=== PATIENT | male | born 1965 | race Caucasian/White ===

== ENCOUNTER 2016-09-26 19:41 | Observation (INO) | payer MEDICARE ==
[2016-09-26 19:56] VITALS: BMI 28.3
[2016-09-26] MEDS ORDERED: PANTOPRAZOLE SODIUM 40 MG in SODIUM CHLORIDE 100 ML IVPB ONE (20:09)
[2016-09-26] MEDS ORDERED: SODIUM CHLORIDE 1,000 ML IV STA (20:09)
--- NOTE | 2016-09-26 20:09 | PDOC ---
History of Present Illness <Rebecca Clement - Last Filed: 09/27/16 00:13> <Emerald Rodriguez - Last Filed: 09/27/16 00:23> - General Chief Complaint: Lightheaded Stated Complaint: CHEST PAIN Time Seen by Provider: 09/26/16 19:58 - History of Present Illness Initial Comments: 09/27/16 00:06 Patient is a 51 year old male with no significant medical hx who is presenting to the ED with an episode of chest pain that occurred at 3:30 this afternoon. 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 His chest pain was substernal, non-radiating, and rated 6/10 in severity. The patient also endorses dizziness and some arm tingling with his pain. The patient denies any nausea, vomiting, diaphoresis or shortness of breath. He reports that his pain has resolved at this time. The patient also notes that he drank 10 beers yesterday. 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 He has never received a cardiac work up. (Rebecca Clement) Past History <Rebecca Clement - Last Filed: 09/27/16 00:13> - Past Medical History Other medical history: denies - Immunization History Immunization Up to Date: Yes - Psycho/Social/Smoking Cessation Hx Suicidal Ideation: No Smoking History: Never smoked Information on smoking cessation initiated: No Hx Alcohol Use: Yes Drug/Substance Use Hx: No <Emerald Rodriguez - Last Filed: 09/27/16 00:23> - Past Medical History Allergies/Adverse Reactions: Allergies Allergy/AdvReac Type Severity Reaction Status Date / Time No Known Allergies Allergy Verified 09/26/16 22:14 Home Medications: Ambulatory Orders NK [No Known Home Medication] 09/26/16 Review of Systems <Rebecca Clement - Last Filed: 09/27/16 00:13> <Emerald Rodriguez - Last Filed: 09/27/16 00:23> - Review of Systems Comments:: 09/27/16 00:10 CONSTITUTIONAL: Absent: fever, chills, diaphoresis, generalized weakness, malaise, loss of appetite HEENT: Absent: rhinorrhea, nasal congestion, throat pain, throat swelling, difficulty swallowing, mouth swelling, ear pain, eye pain, visual changes CARDIOVASCULAR: Present: chest pain Absent: syncope, palpitations, irregular heart rate, lightheadedness, peripheral edema RESPIRATORY: Absent: cough, shortness of breath, dyspnea with exertion, orthopnea, wheezing, stridor, hemoptysis GASTROINTESTINAL: Absent: abdominal pain, abdominal distension, nausea, vomiting, diarrhea, constipation, melena, hematochezia GENITOURINARY: Absent: dysuria, frequency, urgency, hesitancy, hematuria, flank pain, genital pain MUSCULOSKELETAL: Absent: myalgia, arthralgia, joint swelling SKIN: Absent: rash, itching, pallor HEMATOLOGIC/IMMUNOLOGIC: Absent: easy bleeding, easy bruising, lymphadenopathy, frequent infections ENDOCRINE: Absent: unexplained weight gain, unexplained weight loss, heat intolerance, cold intolerance NEUROLOGIC: Present: dizziness, arm tingling Absent: headache, focal weakness, unsteady gait, seizure, mental status changes , bladder or bowel incontinence. PSYCHIATRIC: Absent: anxiety, depression, suicidal or homicidal ideation, hallucinations (Rebecca Clement) *Physical Exam <Rebecca Clement - Last Filed: 09/27/16 00:13> <Emerald Rodriguez - Last Filed: 09/27/16 00:23> - Vital Signs Last Vital Signs Temp Pulse Resp BP Pulse Ox 98.1 F 90 20 144/90 98 09/26/16 19:42 09/26/16 19:42 09/26/16 19:42 09/26/16 19:42 09/26/16 20:25 - Physical Exam Comments: 09/27/16 00:11 GENERAL: Well developed, well nourished. Awake and alert. No acute distress. HEENT: Normocephalic, atraumatic. PERRLA, EOMI. No conjunctival pallor. Sclera are non- icteric. Moist mucous membranes. Oropharynx is clear. NECK: Supple. Full ROM. No JVD. Carotid pulses 2+ and symmetric, without bruits. No thyromegaly. No lymphadenopathy. CARDIOVASCULAR: Regular rate and rhythm. No murmurs, rubs, or gallops. Distal pulses are 2+ and symmetric. PULMONARY: No evidence of respiratory distress. Lungs clear to auscultation bilaterally. No wheezing, rales or rhonchi. ABDOMINAL: Soft. Non-tender. Non-distended. No rebound or guarding. No organomegaly. Normoactive bowel sounds. MUSCULOSKELETAL: Normal range of motion at all joints. No bony deformities or tenderness. No CVA tenderness. EXTREMITIES: No cyanosis. No clubbing. No edema. No calf tenderness. SKIN: Warm and dry. Normal capillary refill. No rashes. No jaundice. NEUROLOGICAL: Alert, awake, appropriate. No gross neurological deficits. Cranial nerves 2-12 intact. Normal speech. Gait is normal without ataxia. PSYCHIATRIC: Cooperative. Good eye contact. Appropriate mood and affect. (Rebecca Clement) Heart Score/ECG Review <Rebecca Clement - Last Filed: 09/27/16 00:13> <Emerald Rodriguez - Last Filed: 09/27/16 00:23> #1 09/27/16 00:13 Normal sinus rhythm at 97 bpm Possible left atrial enlargement Borderline ECG (Rebecca Clement) ED Treatment Course - LABORATORY CBC & Chemistry Diagram: 09/26/16 20:05 09/26/16 20:05 <Rebecca Clement - Last Filed: 09/27/16 00:13> - LABORATORY CBC & Chemistry Diagram: 09/26/16 20:05 09/26/16 20:05 <Emerald Rodriguez - Last Filed: 09/27/16 00:23> - ADDITIONAL ORDERS Additional order review: Laboratory Results 09/26/16 09/26/16 09/26/16 20:12 20:05 20:05 INR Sodium 137 Potassium 4.1 Chloride 99 Carbon Dioxide 27 Anion Gap 11 BUN 14 Creatinine 0.7 Creat Clearance w eGFR > 60 Random Glucose 112 H Calcium 9.1 Total Bilirubin 0.5 AST 19 ALT 42 Alkaline Phosphatase 100 Creatine Kinase 261 Creatine Kinase Index 0.2 CK-MB (CK-2) 5.723 H CK-MB (CK-2) Rel Index Cancelled Troponin I < 0.02 Total Protein 8.1 Albumin 4.2 Alcohol, Quantitative < 5.0 09/26/16 20:05 INR 1.03 Sodium Potassium Chloride Carbon Dioxide Anion Gap BUN Creatinine Creat Clearance w eGFR Random Glucose Calcium Total Bilirubin AST ALT Alkaline Phosphatase Creatine Kinase Creatine Kinase Index CK-MB (CK-2) CK-MB (CK-2) Rel Index Troponin I Total Protein Albumin Alcohol, Quantitative 09/26/16 20:05 RBC 5.16 MCV 84.8 MCHC 32.6 RDW 13.8 MPV 8.4 Neutrophils % 81.8 Lymphocytes % 11.8 Monocytes % 5.7 Eosinophils % 0.3 Basophils % 0.4 - RADIOLOGY Radiology Studies Ordered: Category Date Time Status CHEST X-RAY PORTABLE* [RAD] Stat Radiology 09/26/16 20:09 Completed Radiograph Interpretation: 09/27/16 00:12 Chest X-Ray Impression: Unremarkable examination. Reported By: Aiyana Boyd MD (Rebecca Clement) - Medications Given in the ED: ED Medications Discontinued Medications Generic Name Dose Route Start Last Admin Trade Name Freq PRN Reason Stop Dose Admin Aspirin 162 mg 09/26/16 23:36 09/26/16 23:59 Asa - PO 09/26/16 23:37 162 mg ONCE ONE Administration Sodium Chloride 1,000 mls @ 1,000 mls/hr 09/26/16 20:09 09/26/16 20:20 Normal Saline - IV 09/26/16 21:08 1,000 mls/hr ASDIR STA Administration Pantoprazole Sodium 40 mg/ 100 mls @ 200 mls/hr 09/26/16 20:09 09/26/16 20:24 Sodium Chloride IVPB 09/26/16 20:38 200 mls/hr ONCE ONE Administration Medical Decision Making <Rebecca Clement - Last Filed: 09/27/16 00:13> <Emerald Rodriguez - Last Filed: 09/27/16 00:23> - Medical Decision Making 09/27/16 00:21 51-year-old male chest pain today that was nonradiating. He had dizziness and has some tingling in his arm at that time. He had no vomiting or diaphoresis. He said that his pain lasted for about 2 hours and it was 6 out of 10 substernal He's never had chest pain before. He does not go to a physician. He has past medical history of knee surgery in the remote past. Past medical history denies EKG 72 bpm with PVCs Chest x-ray is no acute pulmonary disease First cardiac enzyme is negative I spoke with Dr. Florence and pt will be admitted to telemetry observation (Emerald Rodriguez) *DC/Admit/Observation/Transfer <Rebecca Clement - Last Filed: 09/27/16 00:13> - Discharge Dispostion Admit: Yes <Emerald Rodriguez - Last Filed: 09/27/16 00:23> Diagnosis at time of Disposition: Chest pain Qualifiers: Chest pain type: unspecified Qualified Code(s): R07.9 - Chest pain, unspecified - Discharge Dispostion Decision to Admit order Date/Time: Decision to Admit Order Category Date Time Status Decision to Admit to Hospital Routine Admission 09/27/16 00:21 Ordered - Attestations Scribe Attestion: 09/27/16 00:14 Documentation prepared by Rebecca Clement, acting as medical orderly for Emerald Rodriguez MD. (Rebecca Clement)
[2016-09-26 20:12] LABS: BASOPHIL 0.4 % (0-2.0); EOSINOPHIL 0.3 % (0-4.5); MCH 27.6 pg (25.7-33.7); MCHC 32.6 g/dl (32.0-35.9); MEAN CELL VOLUME 84.8 fl (80-96); MEAN PLT VOLUME 8.4 fl (7.5-11.1); NEUTROPHILS 81.8 % (42.8-82.8); PLATELET COUNT 244 K/MM3 (134-434); RDW 13.8 % (11.9-15.9); WHITE BLOOD COUNT 12.5 K/mm3 (4.0-10.0)
[2016-09-26 20:20] LABS: INR 1.03 (0.82-1.09); PROTHROMBIN TIME (PATIENT) 11.3 SEC (9.98-11.88)
[2016-09-26] MEDS ORDERED: PANTOPRAZOLE SODIUM 40 MG VIAL ONE (20:21)
[2016-09-26 20:49] LABS: ALBUMIN 4.2 g/dl (3.4-5.0); ANION GAP 11 (8-16); BILIRUBIN,TOTAL 0.5 mg/dL (0.2-1.0); CALCIUM 9.1 mg/dL (8.5-10.1); CO2 27 mmol/L (21-32); COCKROFT - GAULT 126.71; CREATININE 0.7 mg/dL (0.7-1.3); GLUCOSE,RANDOM 112 mg/dL (74-106); SGOT/AST 19 U/L (15-37); SGPT/ALT 42 U/L (12-78); TOT PROT 8.1 g/dl (6.4-8.2)
[2016-09-26 20:52] LABS: ALK PHOS 100 U/L (45-117); TROPONIN I < 0.02 ng/ml (0.00-0.05)
[2016-09-26] MEDS ORDERED: PANTOPRAZOLE SODIUM 100 ML IVPB ONE (21:49)
[2016-09-26] MEDS ORDERED: ASPIRIN 81 MG CHEWABLE TABLETS PO ONE (23:36)
[2016-09-26] MEDS ORDERED: ASPIRIN 81 MG CHEWABLE TABLETS ONE (23:51)
[2016-09-27] MEDS ORDERED: ACETAMINOPHEN 325 MG TABLET (FP) PO PRN (01:56)
--- NOTE | 2016-09-27 02:03 | HP ---
CHIEF COMPLAINT: " i had chest pressure" PCP: none HISTORY OF PRESENT ILLNESS: This is a 51 yo M with no PMH and no physician f/u, who presented due to a sudden episode of chest pressure that occurred at 330 pm during physical activity and lasted for 2 hours until he received Asa and PPI in ED. Pressure was left sided, aggravated by moving his arms, associated with b/l finger tingling, diaphoresis, palpitations and dizziness. There was no sob and patient denies ever having chest pain or discomfort before. He denies exercise intolerance, orthopnea or weight gain. He drank 10 beers the day before but denies drinking every day, stating he only drinks once every 2 weeks. He has no family history of heart disease. 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 Smoking: denies Alcohol: occasional Drugs: denies Family History: no history of heart problems Allergies No Known Allergies Allergy (Verified 09/26/16 22:14) HOME MEDICATIONS: Home Medications Medication Instructions Recorded NK [No Known Home Medication] 09/26/16 REVIEW OF SYSTEMS CONSTITUTIONAL: Absent: fever, chills, loss of appetite, weight change HEENT: Absent: rhinorrhea, nasal congestion, throat pain, throat swelling CARDIOVASCULAR: Absent: syncope, irregular heart rate, peripheral edema RESPIRATORY: Absent: cough, shortness of breath, dyspnea with exertion, orthopnea, wheezing, stridor, hemoptysis GASTROINTESTINAL: Absent: abdominal pain, abdominal distension, nausea, vomiting, diarrhea, constipation GENITOURINARY: Absent: dysuria, frequency, urgency MUSCULOSKELETAL: Absent: myalgia, arthralgia SKIN: Absent: rash, itching, pallor HEMATOLOGIC/IMMUNOLOGIC: Absent: easy bleeding, easy bruising ENDOCRINE: Absent: unexplained weight gain, unexplained weight loss, heat intolerance, cold intolerance NEUROLOGIC: Absent: headache, focal weakness or paresthesias, dizziness, unsteady gait, seizure PSYCHIATRIC: Absent: anxiety, depression PHYSICAL EXAMINATION GENERAL: Awake, alert, and fully oriented, in no acute distress. HEAD: Normal with no signs of trauma. EYES: Pupils equal, round and reactive to light, extraocular movements intact, sclera anicteric, conjunctiva clear. No lid lag. EARS, NOSE, THROAT: Moist mucous membranes. NECK: supple without JVD, or masses. LUNGS: Breath sounds equal, clear to auscultation bilaterally. No wheezes, and no crackles. HEART: Regular rate and rhythm, normal S1 and S2 without murmur, rub or gallop. ABDOMEN: Soft, nontender, not distended, normoactive bowel sounds, no mass, + hepatomegaly MUSCULOSKELETAL: No CVA tenderness. UPPER EXTREMITIES: 2+ pulses, warm, well-perfused. No cyanosis. No clubbing. No peripheral edema. LOWER EXTREMITIES: 2+ pulses, warm, well-perfused. No calf tenderness. No peripheral edema. NEUROLOGICAL: Cranial nerves II-XII grossly intact. Normal speech. PSYCHIATRIC: Cooperative. Good eye contact. Appropriate mood and affect. SKIN: Warm, dry Laboratory Tests 09/26/16 09/26/16 09/27/16 20:05 20:05 03:04 WBC 12.5 H Hgb 14.3 Hct 43.8 Plt Count 244 Neutrophils % 81.8 Sodium 137 Potassium 4.1 Chloride 99 Carbon Dioxide 27 Anion Gap 11 BUN 14 Creatinine 0.7 Total Bilirubin 0.5 AST 19 ALT 42 CK-MB (CK-2) 5.723 H Troponin I < 0.02 < 0.02 ASSESSMENT/PLAN: This is a 51 yo M with no PMH and no physician f/u, who presented due to a sudden episode of chest pressure that occurred at 330 pm during physical activity and lasted for 2 hours until he received Asa and PPI in ED. atypical chest pain -EKG no sign of ACS -trop negative x2 -CXR unremarkable -may be musculoskeletal or vasovagal vs gi -tele monitoring -asa 81 daily -TTE -tfts, a1c, lipid panel -ppi for possible reflux in setting of binge drinking -outpatient pcp and cardiac f/u recommended FEN No ivf lytes stable na restricted diet SCD Dispo: obs in tele Problem List - Problem (1) Chest pain Code(s): R07.9 - CHEST PAIN, UNSPECIFIED Qualifiers: Chest pain type: unspecified Qualified Code(s): R07.9 - Chest pain, unspecified (2) Atypical chest pain Code(s): R07.89 - OTHER CHEST PAIN Visit type - Emergency Visit Emergency Visit: Yes ED Registration Date: 05/09/17 Care time: The patient presented to the Emergency Department on the above date and was hospitalized for further evaluation of their emergent condition. - New Patient This patient is new to me today: Yes Date on this admission: 09/27/16 - Critical Care Critical Care patient: No
--- NOTE | 2016-09-27 05:44 | PN ---
Teaching Attending Note Name of Resident: Elena Morales ATTENDING PHYSICIAN STATEMENT I saw and evaluated the patient. I reviewed the resident's note and discussed the case with the resident. I agree with the resident's findings and plan as documented. SUBJECTIVE: 51 year old presents to the ED c/o mid sternal chest pain , 6/10, occurred during exertion , non radiating associated with dizziness. Resolved upon arrival . Denies previous episodes. Denies history of MS or CAD PMH: None PSH: Denies ALL : NKDA Meds : NONE Social : Denies smoking Admits to alcohol use , 5 days a week Last drink yesterday x 10 OBJECTIVE: Vital Signs Temperature 98.1 F 09/26/16 19:42 Pulse Rate 90 09/26/16 19:42 Respiratory Rate 20 09/26/16 19:42 Blood Pressure 144/90 09/26/16 19:42 O2 Sat by Pulse Oximetry (%) 98 09/26/16 20:25 GENERAL: Well developed, well nourished. Awake and alert. No acute distress. HEENT: Normocephalic, atraumatic. PERRLA, EOMI. No conjunctival pallor. Sclera are non- icteric. Moist mucous membranes. Oropharynx is clear. NECK: Supple. Full ROM. No JVD. Carotid pulses 2+ and symmetric, without bruits. No thyromegaly. No lymphadenopathy. CARDIOVASCULAR: Regular rate and rhythm. No murmurs, rubs, or gallops. Distal pulses are 2+ and symmetric. PULMONARY: No evidence of respiratory distress. Lungs clear to auscultation bilaterally. No wheezing, rales or rhonchi. ABDOMINAL: Soft. Non-tender. Non-distended. No rebound or guarding. No organomegaly. Normoactive bowel sounds. MUSCULOSKELETAL: Normal range of motion at all joints. No bony deformities or tenderness. No CVA tenderness. EXTREMITIES: No cyanosis. No clubbing. No edema. No calf tenderness. Laboratory 09/26/16 09/26/16 09/26/16 20:05 20:05 20:05 WBC 12.5 K/mm3 H K/mm3 (4.0-10.0) RBC 5.16 M/mm3 M/mm3 (4.00-5.60) Hgb 14.3 GM/dL GM/dL (11.7-16.9) Hct 43.8 % % (35.4-49) MCV 84.8 fl fl (80-96) MCHC 32.6 g/dl g/dl (32.0-35.9) RDW 13.8 % % (11.9-15.9) Plt Count 244 K/MM3 K/MM3 (134-434) MPV 8.4 fl fl (7.5-11.1) Neutrophils % 81.8 % % (42.8-82.8) Lymphocytes % 11.8 % % (8-40) Monocytes % 5.7 % % (3.8-10.2) Eosinophils % 0.3 % % (0-4.5) Basophils % 0.4 % % (0-2.0) INR 1.03 (0.82-1.09) Sodium 137 mmol/L mmol/L (136-145) Potassium 4.1 mmol/L mmol/L (3.5-5.1) Chloride 99 mmol/L mmol/L (98-107) Carbon Dioxide 27 mmol/L mmol/L (21-32) Anion Gap 11 (8-16) BUN 14 mg/dL mg/dL (7-18) Creatinine 0.7 mg/dL mg/dL (0.7-1.3) Creat Clearance w eGFR > 60 (>60) Random Glucose 112 mg/dL H mg/dL (74-106) Calcium 9.1 mg/dL mg/dL (8.5-10.1) Total Bilirubin 0.5 mg/dL mg/dL (0.2-1.0) AST 19 U/L U/L (15-37) ALT 42 U/L U/L (12-78) Alkaline Phosphatase 100 U/L U/L (45-117) Creatine Kinase 261 IU/L IU/L (39-308) Creatine Kinase Index 0.2 % % (0.0-5.0) CK-MB (CK-2) 5.723 ng/ml H ng/ml (0.5-3.6) CK-MB (CK-2) Rel Index Troponin I < 0.02 ng/ml ng/ml (0.00-0.05) Total Protein 8.1 g/dl g/dl (6.4-8.2) Albumin 4.2 g/dl g/dl (3.4-5.0) Alcohol, Quantitative 09/26/16 09/26/16 09/27/16 20:05 20:12 03:04 WBC RBC Hgb Hct MCV MCHC RDW Plt Count MPV Neutrophils % Lymphocytes % Monocytes % Eosinophils % Basophils % INR Sodium Potassium Chloride Carbon Dioxide Anion Gap BUN Creatinine Creat Clearance w eGFR Random Glucose Calcium Total Bilirubin AST ALT Alkaline Phosphatase Creatine Kinase Creatine Kinase Index CK-MB (CK-2) CK-MB (CK-2) Rel Index Cancelled Troponin I < 0.02 ng/ml ng/ml (0.00-0.05) Total Protein Albumin Alcohol, Quantitative < 5.0 mg/dl mg/dl (0-5) ASSESSMENT AND PLAN:
[2016-09-27 06:49] LABS: MCH 28.3 pg (25.7-33.7); MCHC 33.2 g/dl (32.0-35.9); MEAN CELL VOLUME 85.1 fl (80-96); MEAN PLT VOLUME 8.3 fl (7.5-11.1); PLATELET COUNT 210 K/MM3 (134-434); RDW 13.9 % (11.9-15.9); WHITE BLOOD COUNT 6.9 K/mm3 (4.0-10.0)
[2016-09-27 07:18] LABS: CALCIUM 8.3 mg/dL (8.5-10.1); COCKROFT - GAULT 126.71; CREATININE 0.7 mg/dL (0.7-1.3); MAGNESIUM 2.4 mg/dL (1.8-2.4); PHOSPHOROUS 2.6 mg/dL (2.5-4.9)
[2016-09-27 07:29] LABS: THYROID STIMULATING HORMONE 1.22 uIU/ml (0.358-3.74)
[2016-09-27 08:06] LABS: CHOLESTEROL 172 mg/dL (50-200); LDL CHOLESTEROL (ONLY SJRH) 102 mg/dL (5-100)
[2016-09-27] MEDS ORDERED: ASPIRIN COATED 81 MG TABLET.EC PO SCH (10:00)
[2016-09-27] MEDS ORDERED: PANTOPRAZOLE 20 MG TABLET (FP) PO SCH (10:00)
--- NOTE | 2016-09-27 11:05 | EKG ---
Test Reason : Blood Pressure : / mmHG Vent. Rate : 097 BPM Atrial Rate : 097 BPM P-R Int : 154 ms QRS Dur : 086 ms QT Int : 356 ms P-R-T Axes : 062 -04 014 degrees QTc Int : 452 ms NORMAL SINUS RHYTHM POSSIBLE LEFT ATRIAL ENLARGEMENT BORDERLINE ECG NO PREVIOUS ECGS AVAILABLE Confirmed by SUDEEP MORRIS, BLAYNE ([id number]) on 09/27/2016 11:04:50 AM Referred By: Confirmed By:BLAYNE SHEETS MD
--- NOTE | 2016-09-27 11:17 | PN ---
Physical Exam: SUBJECTIVE: Patient seen and examined at bed side this morning. Patient just reported he was hungry. Denies chest pain, sob, cough, abdominal pain, nausea or vomiting. Bowel/ Bladder habit normal. Sleep/Appetite normal. OBJECTIVE: Vital Signs Period Temp Pulse Resp BP Sys/[place] Pulse Ox Last 24 Hr 98.4 F 52-66 17-18 119-133/70-80 99-99 GENERAL: Awake, alert, and fully oriented, in no acute distress. HEAD: Normal with no signs of trauma. EYES: EOM intact, no pallor or icterus. EARS, NOSE, THROAT: Moist mucous membranes. NECK: supple without JVD, or masses. LUNGS: Breath sounds equal, clear to auscultation bilaterally. No wheezes, and no crackles. HEART: Regular rate and rhythm, normal S1 and S2 without murmur, rub or gallop. ABDOMEN: Soft, nontender, not distended, normoactive bowel sounds, no mass, + hepatomegaly MUSCULOSKELETAL: No CVA tenderness. UPPER EXTREMITIES: 2+ pulses, warm, well-perfused. No cyanosis. No clubbing. No peripheral edema. LOWER EXTREMITIES: 2+ pulses, warm, well-perfused. No calf tenderness. No peripheral edema. NEUROLOGICAL: Cranial nerves II-XII grossly intact. Normal speech. PSYCHIATRIC: Cooperative. Good eye contact. Appropriate mood and affect. SKIN: Warm, dry Laboratory Results - last 24 hr 09/27/16 09/27/16 09/27/16 03:04 06:30 06:30 WBC RBC Hgb Hct MCV MCHC RDW Plt Count MPV Sodium 138 Potassium 4.1 Chloride 102 Carbon Dioxide 30 Anion Gap 6 L BUN 13 Creatinine 0.7 Random Glucose 105 Hemoglobin A1c % 5.9 Calcium 8.3 L Phosphorus 2.6 Magnesium 2.4 Troponin I < 0.02 Triglycerides Cancelled Cholesterol Cancelled Total LDL Cholesterol Cancelled HDL Cholesterol Cancelled TSH 1.22 09/27/16 09/27/16 06:30 06:30 WBC 6.9 D RBC 4.94 Hgb 14.0 Hct 42.1 MCV 85.1 MCHC 33.2 RDW 13.9 Plt Count 210 MPV 8.3 Sodium Potassium Chloride Carbon Dioxide Anion Gap BUN Creatinine Random Glucose Hemoglobin A1c % Calcium Phosphorus Magnesium Troponin I Triglycerides 87 Cholesterol 172 Total LDL Cholesterol 102 H HDL Cholesterol 62 H TSH Active Medications Generic Name Dose Route Start Last Admin Trade Name Freq PRN Reason Stop Dose Admin Acetaminophen 650 mg 09/27/16 01:56 Tylenol - PO Q4H PRN FEVER OR PAIN Aspirin 81 mg 09/27/16 10:00 Ecotrin - PO DAILY MARLENE Pantoprazole Sodium 20 mg 09/27/16 10:00 Protonix - PO DAILY MARLENE 09/26/16: CXR normal. ASSESSMENT/PLAN: This is a 51 yo M with no PMH and no physician f/u, who presented due to a sudden episode of chest pressure that occurred at 330 pm during physical activity and lasted for 2 hours until he received Asa and PPI in ED. # Atypical chest pain rule out ACS Likely Angina however could be musculoskeletal Patient presented with chest pain with exertion. EKG no sign of ACS Trop negative x2 CXR unremarkable Admitted in Tele Continuous cardiac monitoring Continue Aspirin 81 daily Echo ordered NPO for stress test Treadmill with echo ordered and after the results will manage accordingly # Pre-diabetic Nte9c-9.9 Diet and exercise # Lipid panel : TG-87; T chol-172; LDL-102; HDL-62. If patient has any positive findings on stress test, will add aspirin and cholesterol meds. # Likely GERD Patient has a h/o binge drinking, last alcohol intake was 2 days ago (had 10 beers) PPI for possible reflux # FEN Not on IVF Electrolytes stable Sodium restricted diet after treadmill stress test. # Prophylaxis For DVT: On SCD For GI: Protonix # Dispo: Observation in Tele. Duration of stay unknown. Illness, Investigation and Plan of care explained to the patient. He verbalized understanding. Case discussed with Dr. Owens. Visit type - Emergency Visit Emergency Visit: Yes ED Registration Date: 09/27/16 Care time: The patient presented to the Emergency Department on the above date and was hospitalized for further evaluation of their emergent condition. - New Patient This patient is new to me today: Yes Date on this admission: 09/27/16 - Critical Care Critical Care patient: No - Discharge Referral Referred to [facility] Med P.C.: Yes Physician Referral: Germain Delacruz MD (Int Med)
--- NOTE | 2016-09-27 12:48 | PN ---
Teaching Attending Note Name of Resident: Liliam Morelos ATTENDING PHYSICIAN STATEMENT I saw and evaluated the patient. I reviewed the resident's note and discussed the case with the resident. I agree with the resident's findings and plan as documented. SUBJECTIVE: [facility] prior authorization [id number] no fever ro chills, no abd pain , no CP at this point , no SOB . hx was reviewed with him, admits to no CP before yesterday. Yesterday incident happened while exerting himself, with sweats, SOB, numbness of fingers and light headedness . pain lasted 2 hours and resolved with Nitroglycerin OBJECTIVE: NAD , CV: RRR, no MRG , no JVD Lungs : CTAB ext : no edema Abd : soft, NT, ND , NL BS , Liver is not percussed or palpated. A/P : 51 y/o gentleman with no significant PMH who presented with CP on exertion . 1- CP: given that CP was exceptional, in this male who has h/o smoking, and is 51 y/o , this is concerning for cardiac chest pain, which could be unstable angina , given first time CP and duration - will check Stress echo , to r/o cardiac origin - review echo for wall motion abnormalities . - if stress test is neg , will consider other causes for his cp , which might be MS , or GI . - if stress test is neg , will dc asa - if stress is positive ,will consult cardiology - LDL goal depends on his stress test results . [place] 10 yr risk for CAD is 6.8 %. Dispo : depends on stress test results
--- NOTE | 2016-09-27 12:53 | MSN ---
Progress Note (SOAP) - Subjective Chief Complaint: Chest pain History of Present Illness: MEDICAL STUDENT NOTE The patient is a 56 year old [place] speaking male with no significant past medical history who presented to the ED with a complaint of chest pain. 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 The patient stated that the night before he experienced the pain he drank 10 beers. He normally drinks approximately 4 beers every 20 weeks. The pain was described as a pressure localized on the left side, aggravated by arm movement and associated with bilateral tingling in the fingers, diaphoresis, palpitations, and dizziness. The chest pressure was remitted by administration of nitroglycerin in the ED. Today the patient denied any shortness of breath, chest pain, chest pressure, palpitation, sweating, nausea, vomiting, or headaches. His only complaint was that he was hungry. - Current Medications Current Medications: Active Medications Acetaminophen (Tylenol -) 650 mg PO Q4H PRN PRN Reason: FEVER OR PAIN Aspirin (Ecotrin -) 81 mg PO DAILY MARLENE Pantoprazole Sodium (Protonix -) 20 mg PO DAILY MARLENE - Objective Vital Signs: Vital Signs Temperature 98.4 F 09/27/16 07:11 Pulse Rate 52 L 09/27/16 07:11 Respiratory Rate 17 09/27/16 07:11 Blood Pressure 133/80 09/27/16 07:11 O2 Sat by Pulse Oximetry (%) 99 09/27/16 07:11 Constitutional: Yes: Well Nourished, No Distress, Calm, Diaphoresis. No: Ashen , Pallor Eyes: Yes: WNL, Conjunctiva Clear, EOM Intact, PERRL. No: Ptosis, Sclera Icterus HENT: Yes: WNL, Atraumatic, Normocephalic. No: Drooling, Hoarseness, Pharyngeal Erythema, Rhinnorhea, Tonsillar Exudate Neck: Yes: WNL, Supple, Trachea Midline. No: Lymphadenopathy, Tenderness, Thyromegaly Cardiovascular: Yes: WNL, Regular Rate and Rhythm, S1, S2. No: Pulse Irregular , Murmur, S3, S4 Respiratory: Yes: WNL, Regular, CTA Bilaterally. No: Accessory Muscle Use, Cough, Rales, Rhonchi, SOB, Wheezes Gastrointestinal: Yes: WNL, Normal Bowel Sounds, Soft, Tenderness, Epigastrium. No: Ascites, Hepatomegaly, Palpable Mass, Splenomegaly, Tenderness, Tenderness , Rebound Musculoskeletal: Yes: WNL Extremities: Yes: WNL. No: Calf Tenderness, Cool, Cyanosis, Deformity, Pallor Peripheral Pulses WNL: Yes Peripheral Pulses: Left Radial: 2+, Right Radial: 2+, Left Doralis Pedis: 2+, Right Dorsalis Pedis: 2+ Edema: No (No edema b/l UE or LE) Integumentary: Yes: WNL. No: Erythema, Petechiae, Rash, Venous Stasis Changes Neurological: Yes: WNL, Alert, Oriented Labs Lab Results: CBC, BMP 09/27/16 06:30 09/27/16 06:30 Assessment/Plan MEDICAL STUDENT NOTE The patient is a 51 year old [place] speaking male with no significant past medical history who is on day 1 of observation for cardiac monitoring following an episode of typical chest pain. #Typical chest pain - Suspect cardiac cause of chest pain as this patient experienced the pain while exerting himself and due to the fact it was relieved with nitroglycerin - Echocardiogram reading notable for technically difficult with suboptimal quality images - mild-moderate mitral valve thickening - mild mitral annular calcification - mild-moderate aortic sclerosis - trace mitral regurgitation - trace-mild tricuspid regurgitation - Right ventricular pressure 26mmHg - Awaiting results of stress echo. If stress echo shows abnormalities, consider cardiology consult. - If stress echo shows no abnormalities, discontinue aspirin - If stress echo shows no abnormalities, consider other possible etiologies for chest pain - If stress echo shows abnormal cardiac function, consider discontinuing protonix 20mg - Consider LDL lowering treatment depending on stress echo results #DVT prophylaxis - SCDs - Ambulation as tolerated Disposition: Awaiting results of stress echocardiogram.
[2016-09-27 15:15] LABS: TROPONIN I < 0.02 ng/ml (0.00-0.05)
[2016-09-27 18:29] VITALS: BP 120/74; PULSE 63; TEMP 98.9
--- NOTE | 2016-09-27 19:00 | DS ---
Physical Exam: SUBJECTIVE: Patient seen and examined at bed side this morning. Patient just reported he was hungry. Denies chest pain, sob, cough, abdominal pain, nausea or vomiting. Bowel/ Bladder habit normal. Sleep/Appetite normal. OBJECTIVE: Vital Signs Period Temp Pulse Resp BP Sys/[place] Pulse Ox Last 24 Hr 97.8 F-98.9 F 52-86 17-20 113-133/59-81 98-100 PHYSICAL EXAM GENERAL: Awake, alert, and fully oriented, in no acute distress. HEAD: Normal with no signs of trauma. EYES: EOM intact, no pallor or icterus. EARS, NOSE, THROAT: Moist mucous membranes. NECK: supple without JVD, or masses. LUNGS: Breath sounds equal, clear to auscultation bilaterally. No wheezes, and no crackles. HEART: Regular rate and rhythm, normal S1 and S2 without murmur, rub or gallop. ABDOMEN: Soft, nontender, not distended, normoactive bowel sounds, no mass, + hepatomegaly MUSCULOSKELETAL: No CVA tenderness. UPPER EXTREMITIES: 2+ pulses, warm, well-perfused. No cyanosis. No clubbing. No peripheral edema. LOWER EXTREMITIES: 2+ pulses, warm, well-perfused. No calf tenderness. No peripheral edema. NEUROLOGICAL: Cranial nerves II-XII grossly intact. Normal speech. PSYCHIATRIC: Cooperative. Good eye contact. Appropriate mood and affect. SKIN: Warm, dry LABS Laboratory Results - last 24 hr 09/27/16 09/27/16 09/27/16 03:04 06:30 06:30 WBC RBC Hgb Hct MCV MCHC RDW Plt Count MPV Sodium 138 Potassium 4.1 Chloride 102 Carbon Dioxide 30 Anion Gap 6 L BUN 13 Creatinine 0.7 Random Glucose 105 Hemoglobin A1c % 5.9 Calcium 8.3 L Phosphorus 2.6 Magnesium 2.4 Creatine Kinase Troponin I < 0.02 Triglycerides Cancelled Cholesterol Cancelled Total LDL Cholesterol Cancelled HDL Cholesterol Cancelled TSH 1.22 09/27/16 09/27/16 09/27/16 06:30 06:30 14:25 WBC 6.9 D RBC 4.94 Hgb 14.0 Hct 42.1 MCV 85.1 MCHC 33.2 RDW 13.9 Plt Count 210 MPV 8.3 Sodium Potassium Chloride Carbon Dioxide Anion Gap BUN Creatinine Random Glucose Hemoglobin A1c % Calcium Phosphorus Magnesium Creatine Kinase 21 L Troponin I < 0.02 Triglycerides 87 Cholesterol 172 Total LDL Cholesterol 102 H HDL Cholesterol 62 H TSH HOSPITAL COURSE: Date of Admission:09/27/16 Date of Discharge: 09/27/16 09/26/16: CXR normal. ASSESSMENT/PLAN: This is a 51 yo Bengali speaking male patient with no PMH and no physician follow up who presented due to a sudden episode of lest sided chest pressure that occurred at around 330 pm during physical activity and lasted for 2 hours until he received Aspirin and PPI in ED. Patient was admitted in Tele to evaluate for unstable angina. 2 sets of troponin were negative, ECHO reveled no regional wall motion abnormality, Stress test was negative and tele monitoring for more than 12 hours was uneventful. ACS was ruled out, patient symptomatically improved.Chest pain was likely due to GERD/gastritis due to alcohol intake (frequent binge drinking, last drink 2 days ago-had 10 beers) and to continue PPI. Pre- diabetes- low calorie diet and regular excercise advised Alcohol abuser- counselled about risk and advised to quit. Patient was advised to follow up with PMD and forensic audit expert. Also if chest pain reoccurs advised to call 911 or visit nearby ED. Plan of care explained to the patient and he verbalized understanding and agreed. Discussed with Dr. Owens. Patient is medically stable to be discharged. Minutes to complete discharge: 45 Discharge Summary Reason For Visit: CHEST PAIN Current Active Problems Chest pain (Acute) Condition: Improved - Instructions Diet, Activity, Other Instructions: -please follow with your primary care doctor , if you don't have one , please make appointment with Dr. Delacruz - follow with forensic audit expert Dr. Haynes - call MD or come to the ER with any chest pain, shortness of breath , or palpitations -[facility]: [phone] Referrals: Daniel Haynes MD [Staff Physician] - Germain Delacruz MD [Staff Physician] - Disposition: HOME - Home Medications Comprehensive Discharge Medication List: Ambulatory Orders NK [No Known Home Medication] 09/26/16 This patient is new to me today: Yes Date on this admission: 09/27/16 Emergency Visit: Yes ED Registration Date: 09/27/16 Care time: The patient presented to the Emergency Department on the above date and was hospitalized for further evaluation of their emergent condition. Critical Care patient: No - Discharge Referral Referred to [facility] Yes Physician Referral: Germain Delacruz MD (Int Med)
== END 2016-09-27 18:40 | disposition home or self-care (01) ==
LOC: JER 19:41 → JERBED 09-27 00:21 → J4W 09-27 14:13
PROVIDERS: ADMIT Internal Medicine; ATTEND Internal Medicine
PROC: 3E033GC Introduction of Other Therapeutic Substance into Peripheral Vein, Percutaneous Approach (ICD-10-PCS; principal; 2016-09-27)
PROC: 3E0337Z Introduction of Electrolytic and Water Balance Substance into Peripheral Vein, Percutaneous Approach (ICD-10-PCS; 2016-09-27)
DX: R07.89 Other chest pain (principal)
CPT/HCPCS: 36415; 71010-TC; 80048; 80053; 80061; 80307; 82550; 82553; 83036; 83721; 83735; 84100; 84443; 84484; 85025; 85027; 85610; 93005; 93010; 93306-TC; 93351; 99284-25; G0378